=== PATIENT | female | born 2000 | race Caucasian/White ===

== ENCOUNTER 2019-01-28 21:38 | Emergency (ER) | payer OTHER ==
[2019-01-29 00:09] LABS: ABSOLUTE MONOCYTES (AUTO) 0.3 10^3/uL (0.1-1.4); ABSOLUTE NEUT (AUTO) 5.6 10^3/uL (1.7-8.2); BASOPHILS % (AUTO) 0.3 % (0-2); EOSINOPHILS % (AUTO) 0.2 % (0-6); HEMATOCRIT 39.6 % (36.0-47.0); HEMOGLOBIN 13.9 g/dL (12.0-15.5); LYMPHOCYTES % (AUTO) 14.2 % (13-45); MEAN CORPUSCULAR HEMOGLOBIN 32.2 pg (27.0-33.4); MEAN CORPUSCULAR HGB CONC 35.2 g/dL (32.0-36.0); MEAN CORPUSCULAR VOLUME 92 fl (80-97); MONOCYTES % (AUTO) 4.5 % (3-13); PLATELET COUNT 210 10^3/uL (150-450); RED BLOOD COUNT 4.33 10^6/uL (3.72-5.28); RED CELL DISTRIBUTION WIDTH 11.7 % (11.5-14.0); SEGMENTED NEUTROPHILS % (AUTO) 80.8 % (42-78); TOTAL CELLS COUNTED % (AUTO) 100 %; WHITE BLOOD COUNT 6.9 10^3/uL (4.0-10.5)
[2019-01-29 00:15] LABS: APPEARANCE,URINE SLIGHTLY-CLOUDY; BILIRUBIN,URINE NEGATIVE (NEGATIVE); COLOR,URINE YELLOW; GLUCOSE, URINE NEGATIVE (NEGATIVE); KETONES,URINE NEGATIVE (NEGATIVE); LEUKOCYTE ESTERASE,URINE NEGATIVE (NEGATIVE); NITRITE,URINE NEGATIVE (NEGATIVE); PROTEIN,URINE NEGATIVE (NEGATIVE); URINE SPECIFIC GRAVITY 1.021; UROBILINOGEN,URINE NEGATIVE mg/dL (<2.0)
[2019-01-29 00:24] LABS: ALANINE AMINOTRANSFERASE 24 U/L (9-52); ALBUMIN 4.1 g/dL (3.5-5.0); ALKALINE PHOSPHATASE 56 U/L (38-126); ANION GAP 9 (5-19); ASPARTATE AMINO TRANSFERASE 22 U/L (14-36); BILIRUBIN,DIRECT 0.2 mg/dL (0.0-0.4); BILIRUBIN,TOTAL 0.5 mg/dL (0.2-1.3); BLOOD UREA NITROGEN 9 mg/dL (7-20); CALCIUM 9.8 mg/dL (8.4-10.2); CARBON DIOXIDE 24 mmol/L (22-30); CHLORIDE 104 mmol/L (98-107); GLUCOSE 118 mg/dL (75-110); POTASSIUM 4.1 mmol/L (3.6-5.0); TOTAL PROTEIN 6.9 g/dL (6.3-8.2)
--- NOTE | 2019-01-29 00:32 | ER Document Report ---
ED Medical Screen (RME) - General Chief Complaint: Abdominal Pain Stated Complaint: RIGHT SIDE AND BACK PAIN Time Seen by Provider: 01/29/19 00:23 Primary Care Provider: JULI CHAMBERS MD [Primary Care Provider] - Follow up as needed Mode of Arrival: Ambulatory Information source: Patient Notes: 18-year-old female presented to ED for complaint of right abdominal pain. She states is tender in the upper and lower abdomen and pelvics. She states she has had similar pain in the past and she has 6 stones in her gallbladder and has had multiple ruptured ovarian cyst. She states she had a recent ultrasound but does not have the definite results of that yet. She has not had any vomiting or fevers. Patient is alert oriented respirations regular and unlabored speaking in full sentences. Her white count was negative before I examined her. I have ordered a ultrasounds and she will be seen by another provider. I have greeted and performed a rapid initial assessment of this patient. A comprehensive ED assessment and evaluation of the patient, analysis of test results and completion of medical decision making process will be conducted by an additional ED providers. Dictation of this chart was performed using voice recognition software; therefore, there may be some unintended grammatical errors. TRAVEL OUTSIDE OF THE [place] IN LAST 30 DAYS: No - Related Data Allergies/Adverse Reactions: No Known Allergies Allergy (Unverified 01/28/19 21:43) Past Medical History - Social History Frequency of alcohol use: None Drug Abuse: None Renal/ Medical History: Denies: Hx Peritoneal Dialysis Physical Exam - Vital signs Vitals: Temp Pulse Resp BP Pulse Ox 97.7 F 68 18 105/74 98 01/28/19 21:44 01/28/19 21:44 01/28/19 21:44 01/28/19 21:44 01/28/19 21:44 Course - Vital Signs Vital signs: Temp Pulse Resp BP Pulse Ox 97.7 F 68 18 105/74 98 01/28/19 21:44 01/28/19 21:44 01/28/19 21:44 01/28/19 21:44 01/28/19 21:44 - Laboratory Result Diagrams: 01/28/19 23:57 01/28/19 23:57 Laboratory results interpreted by me: 01/28/19 01/28/19 23:57 23:57 Seg Neutrophils % 80.8 H Glucose 118 H Doctor's Discharge - Discharge Referrals: JULI CHAMBERS MD [Primary Care Provider] - Follow up as needed
[2019-01-29] MEDS ORDERED: ONDANSETRON 4 MG TAB.RAPDIS PO ONE (00:58)
[2019-01-29] MEDS ORDERED: HYDROMORPHONE HCL INJ/PF 2 MG/ML AMPULE IM ONE (00:58)
[2019-01-29] MEDS ORDERED: KETOROLAC TROMETHAMINE 60 MG/2 ML SDV IM ONE (00:58)
--- NOTE | 2019-01-29 01:01 | ER Document Report ---
ED General - General Chief Complaint: Abdominal Pain Stated Complaint: RIGHT SIDE AND BACK PAIN Time Seen by Provider: 01/29/19 00:23 Primary Care Provider: JULI CHAMBERS MD [ACTIVE STAFF] - Follow up as needed Mode of Arrival: Ambulatory Information source: Patient, Relative, [facility] Records Notes: 18-year-old female presented to ED for complaint of right abdominal pain. She states is tender in the upper and lower abdomen and pelvics. She states she has had similar pain in the past and she has 6 stones in her gallbladder and has had multiple ruptured ovarian cyst. She states she had a recent ultrasound but does not have the definite results of that yet. She has not had any vomiting or fevers. Patient reports recent pelvic exam which was within normal limits. She denies sexual activity, dysuria, vaginal discharge, concern for or STD. TRAVEL OUTSIDE OF THE [place] IN LAST 30 DAYS: No - HPI Onset: This evening Onset/Duration: Sudden, Persistent Quality of pain: Sharp, Stabbing, Throbbing Severity: Severe Pain Level: 3 Associated symptoms: Nausea. denies: Chest pain, Chills, Nonproductive cough, Productive cough, Diarrhea, Fever, Headache, Vomiting, Shortness of breath, Sweating Exacerbated by: Denies Relieved by: Denies Similar symptoms previously: Yes Recently seen / treated by doctor: Yes - Related Data Allergies/Adverse Reactions: No Known Allergies Allergy (Unverified 01/28/19 21:43) Past Medical History - General Information source: Patient - Social History Smoking Status: Never Smoker Frequency of alcohol use: None Drug Abuse: None Lives with: Family Family History: Reviewed & Not Pertinent Patient has suicidal ideation: No Patient has homicidal ideation: No Renal/ Medical History: Reports: Hx Ovarian Cysts. Denies: Hx Peritoneal Dialysis GI Medical History: Reports: Other - Cholelithiasis Review of Systems - Review of Systems Notes: REVIEW OF SYSTEMS: CONSTITUTIONAL : Denies fever, chills, or sweats. Denies recent illness. Denies weight loss, recent hospitalizations. EENT: Denies visual changes, eye pain. Denies sore throat, oral lesions, difficulty swallowing. CARDIOVASCULAR: Denies chest pain. Denies palpitations. Denies lower extremity edema. RESPIRATORY: Denies cough. Denies shortness of breath, wheezing. GASTROINTESTINAL: Denies abdominal distention. Denies vomiting, or diarrhea. Denies blood in vomitus, stools, or per rectum. Denies black, tarry stools. Denies constipation. GENITOURINARY: Denies difficulty urinating, painful urination, frequency, blood in urine, or vaginal discharge. MUSCULOSKELETAL: Denies back or neck pain or stiffness. Denies joint pain or swelling. SKIN: Denies rash, lesions or sores. HEMATOLOGIC : Denies easy bruising or bleeding. LYMPHATIC: Denies swollen glands. NEUROLOGICAL: Denies confusion or altered mental status. Denies loss of consciousness. Denies dizziness or lightheadedness. Denies headache. Denies weakness or paralysis. Denies problems difficulty with ambulation, slurred speech. Denies sensory loss, numbness, or tingling. Denies seizures. PSYCHIATRIC: Denies anxiety or stress. Denies depression, suicidal ideation, or homicidal ideation. Denies visual or auditory hallucinations. Physical Exam - Vital signs Vitals: Temp Pulse Resp BP Pulse Ox 97.7 F 68 18 105/74 98 01/28/19 21:44 01/28/19 21:44 01/28/19 21:44 01/28/19 21:44 01/28/19 21:44 - Notes Notes: PHYSICAL EXAMINATION: GENERAL: Well-appearing, well-nourished and in no acute distress. HEAD: Atraumatic, normocephalic. EYES: Pupils equal round and reactive to light, extraocular movements intact, conjunctiva are normal. ENT: Nares patent, oropharynx clear without exudates. Moist mucous membranes. NECK: Normal range of motion, supple without lymphadenopathy LUNGS: Breath sounds clear to auscultation bilaterally and equal. No wheezes rales or rhonchi. HEART: Regular rate and rhythm without murmurs ABDOMEN: Soft, nontender, nondistended abdomen. No guarding, no rebound. No masses appreciated. Female : deferred Musculoskeletal: Normal range of motion, no pitting or edema. No cyanosis. NEUROLOGICAL: Cranial nerves grossly intact. Normal speech, normal gait. Normal sensory, motor exams PSYCH: Normal mood, normal affect. SKIN: Warm, Dry, normal turgor, no rashes or lesions noted. Course - Re-evaluation Re-evalutation: 01/29/19 01:01 Laboratory 01/28/19 01/28/19 01/28/19 23:40 23:57 23:57 WBC 6.9 RBC 4.33 Hgb 13.9 Hct 39.6 MCV 92 MCH 32.2 MCHC 35.2 RDW 11.7 Plt Count 210 Seg Neutrophils % 80.8 H Lymphocytes % 14.2 Monocytes % 4.5 Eosinophils % 0.2 Basophils % 0.3 Absolute Neutrophils 5.6 Absolute Lymphocytes 1.0 Absolute Monocytes 0.3 Absolute Eosinophils 0.0 Absolute Basophils 0.0 Sodium 137.1 Potassium 4.1 Chloride 104 Carbon Dioxide 24 Anion Gap 9 BUN 9 Creatinine 0.77 Est GFR ( Amer) > 60 Est GFR (Non-Af Amer) > 60 Glucose 118 H Calcium 9.8 Total Bilirubin 0.5 Direct Bilirubin 0.2 Neonat Total Bilirubin Not Reportable Neonat Direct Bilirubin Not Reportable Neonat Indirect Bili Not Reportable AST 22 ALT 24 Alkaline Phosphatase 56 Total Protein 6.9 Albumin 4.1 Lipase 127.3 Urine Color YELLOW Urine Appearance SLIGHTLY-CLOUDY Urine pH 6.0 Ur Specific [place] 1.021 Urine Protein NEGATIVE Urine Glucose (UA) NEGATIVE Urine Ketones NEGATIVE Urine Blood NEGATIVE Urine Nitrite NEGATIVE Urine Bilirubin NEGATIVE Urine Urobilinogen NEGATIVE Ur Leukocyte Esterase NEGATIVE Urine WBC (Auto) 1 Urine RBC (Auto) 1 Urine Bacteria (Auto) TRACE Squamous Epi Cells Auto 1 Urine Mucus (Auto) MOD Urine Ascorbic Acid NEGATIVE Urine HCG, Qual NEGATIVE Temp Pulse Resp BP Pulse Ox 97.7 F 68 18 105/74 98 01/28/19 21:44 01/28/19 21:44 01/28/19 21:44 01/28/19 21:44 01/28/19 21:44 Transvaginal US 01/29/19 00:24 IMPRESSION: 1. Grossly normal pelvic ultrasound. Abdomen Ultrasound 01/29/19 00:25 IMPRESSION: Unremarkable study. 01/29/19 04:31 Patient reports improvement in pain after receiving Toradol. 01/30/19 16:10 18-year-old female presents with complaint of right upper quadrant abdominal pain and right lower quadrant abdominal pain. Patient reports a history of o varian cysts and gallstones. Vital signs reviewed and within normal limits. Patient's abdominal exam is benign she is without evidence of peritonitis, surgical abdomen. Transvaginal ultrasound is grossly unremarkableAnd without evidence of ovarian cyst, ovarian torsion. her right upper quadrant ultrasound shows no evidence of cholecystitis. . Patient did receive Toradol which she reports helped her more than the morphine. CBC, CMP, lipase and urinalysis are within normal limits. Copies of the patient's imaging were provided to her mother. Patient was discharged home with a prescription for Toradol and recommendation to follow-up with her primary care physician. Patient was evaluated and treated as appropriate for the patient's presenting symptoms and complaint, with consideration of any critical or life threatening conditions that may be associated with their obtained history and exam as noted above. All results were discussed with patient. Patient provided the opportunity to ask questions, and express concerns. Patient was educated on treatments based on their presumed diagnosis as noted above. At this time we will discharge the patient with return precautions and follow-up recommendations. Verbal discharge instructions given a the bedside. Medication warnings reviewed. Patient is in agreement with this plan and has verbalized understanding of return precautions. After careful consideration I feel that that patient can be safely discharged from the emergency department, they were advised to followup with a primary care physician in 2-3 days. Dictation on this chart was performed using voice recognition software and may result in unintended grammatical, spelling, syntax or errors. - Vital Signs Vital signs: Temp Pulse Resp BP Pulse Ox 97.8 F 70 18 110/70 98 01/29/19 04:50 01/29/19 04:50 01/29/19 04:50 01/29/19 04:50 01/28/19 21:44 - Laboratory Result Diagrams: 01/28/19 23:57 01/28/19 23:57 Laboratory results interpreted by me: 01/28/19 01/28/19 23:57 23:57 Seg Neutrophils % 80.8 H Glucose 118 H - Diagnostic Test Radiology reviewed: Image reviewed, Reports reviewed Discharge - Discharge Clinical Impression: Abdominal pain Qualifiers: Abdominal location: upper abdomen, unspecified Qualified Code(s): R10.10 - Upper abdominal pain, unspecified Condition: Good Disposition: HOME, SELF-CARE Instructions: Abdominal Pain ([facility]) Additional Instructions: You have been seen in the Emergency Department (ED) for abdominal pain. Your evaluation did not identify a clear cause of your symptoms but was generally reassuring. Please follow up with your doctor as soon as possible regarding today's emergent visit and the symptoms that are bothering you. Return to the ED if your abdominal pain worsens or fails to improve, you develop bloody vomiting, bloody diarrhea, you are unable to tolerate fluids due to vomiting, fever greater than 101, or other symptoms that concern you. Prescriptions: Ketorolac Tromethamine [Toradol 10 mg Tablet] 10 mg PO Q6HP PRN #[id number] tablet PRN Reason: Abdominal Cramping Referrals: JULI CHAMBERS MD [ACTIVE STAFF] - Follow up as needed
--- NOTE | 2019-01-29 03:51 | RADIOLOGY REPORT (SQ) ---
CLINICAL HISTORY: right abdom/pelvic check appendix and gb COMPARISON: None. TECHNIQUE: US ABDOMEN DOPPLER LIMITED on 01/29/2019 12:25 AM CDT FINDINGS: Liver is normal in echotexture. Portal vein is patent. Common bile duct measures 2 mm. Gallbladder is normally distended without wall thickening, gallstones or pericholecystic fluid. Right kidney measures 9.4 cm without hydronephrosis. IMPRESSION: Unremarkable study.
--- NOTE | 2019-01-29 03:53 | RADIOLOGY REPORT (SQ) ---
CLINICAL HISTORY: APPENDIX COMPARISON: None. TECHNIQUE: US ABDOMEN LIMITED on 01/29/2019 12:00 AM CDT FINDINGS: Appendix is not visualized. IMPRESSION: Nonvisualization of the appendix.
--- NOTE | 2019-01-29 03:54 | RADIOLOGY REPORT (SQ) ---
EXAM: US Pelvis Complete CLINICAL DATA: 18-year-old female with right sided pelvic pain TECHNICAL DATA: Ultrasound imaging of the pelvis was performed transabdominally and endovaginally on 01/29/2019 at 2:29 AM. COMPARISONS: None FINDINGS: The uterus is normal in size, shape and echogenicity and measures 8.4 x 3.3 x 4.5 cm. The endometrial complex measures 0.7 cm in thickness. There is no endometrial fluid. The right ovary measures 3.3 x 1.5 x 2.5 cm. The right ovary contains normal follicles. Doppler imaging demonstrates normal pulsed and color Doppler flow. The left ovary measures 2.2 x 2.2 x 1.8 cm. The left ovary contains normal follicles. Doppler imaging demonstrates normal pulsed and color Doppler flow. There is a trace amount of free fluid in the pelvis. IMPRESSION: 1. Grossly normal pelvic ultrasound.
[2019-01-29 04:52] VITALS: BP 110/70
== END 2019-01-29 04:50 | disposition home or self-care (01) ==
LOC: ER 21:38
DX: R10.10 Upper abdominal pain, unspecified (principal); R11.0 Nausea
CPT/HCPCS: 99284; 96374; 96375; 36415; 83690; 85025; 81025; 80053; 81001; 76705; 76830; 93976; J1885; S0119; J1170